=== PATIENT | female | born 1950 | race Caucasian/White ===

== ENCOUNTER 2016-12-03 14:29 | Emergency (ER) | payer OTHER ==
[~2016-12-03] VITALS: Ht 160 cm; Wt 72.6 kg
[2016-12-03 16:09] VITALS: BP 135/96
== END 2016-12-03 17:16 | disposition home or self-care (01) ==
LOC: ER 14:29
DX: S61.412A Laceration without foreign body of left hand, initial encounter (principal); Z88.0 Allergy status to penicillin; W26.0XXA Contact with knife, initial encounter; Y93.89 Activity, other specified; Y92.89 Other specified places as the place of occurrence of the external cause; Y99.8 Other external cause status

== ENCOUNTER 2021-03-16 12:36 | Inpatient (IN) | payer OTHER ==
[~2021-03-16] VITALS: Ht 160 cm; Wt 70.8 kg
--- NOTE | ~2021-03-16 | O ---
[facility] [place] [address] OPERATIVE REPORT Name: CHERYL SMITH Room #: 170-5 ADM IN M.R.#: [id number] Admission: 03/16/21 Attend Phys: Neville Regan, Discharge: Date of : 46 Report #: [id number] THIS REPORT FOR: cc: FAM - No family physician/PCP FAM - No family physician/PCP Neville Regan MD ~ DATE OF SERVICE: 03/16/2021 PREOPERATIVE DIAGNOSIS: Acute perforated appendicitis. POSTOPERATIVE DIAGNOSIS: Acute perforated appendicitis. OPERATION: Laparoscopic appendectomy. SURGEON: Neville Regan MD ANESTHESIA: General. ESTIMATED BLOOD LOSS: Minimal. SPECIMENS: Appendix. DESCRIPTION OF PROCEDURE: After informed consent was obtained, the patient was brought to the operating room and placed supine. SCDs were placed and working, preoperative antibiotics were administered, general anesthesia was induced. The abdomen was prepped and draped in the usual sterile fashion. A 10 mm incision was made below the umbilicus. Fascia was incised and a trocar was placed. Pneumoperitoneum was established. Right upper quadrant and left lower quadrant 5 mm trocars were placed. The appendix was grasped and retracted anteriorly. It was perforated about the mid appendix. Pus was suctioned out. The base was fairly clean and viable. The mesoappendix was ligated using the LigaSure device. There was excellent hemostasis. Base of the appendix was then stapled off with a CAN blue load stapler. Appendix was placed into an Endopouch and removed. The area was then irrigated with normal saline. Fascia was then closed with a [id number] 0 Vicryl. Skin was closed with 4-0 Monocryl. Incisions were dressed with Steri-Strips. COMPLICATIONS: None. DISPOSITION: The patient was taken to recovery in satisfactory condition. By: 1822 27 Neville Regan MD /nt
[2021-03-16 13:28] VITALS: BP 104/58
[2021-03-16 14:05] LABS: ABSOLUTE NEUTROPHILS 15.5 thou/uL (1.4-8.2); BASOPHILS 0.2 % (0.0-2.0); EOSINOPHILS 0.2 % (0.0-3.0); HEMATOCRIT 38.1 % (37.0-47.0); HEMOGLOBIN 12.8 gm/dL (12.0-15.0); LYMPHOCYTES 6.1 % (24.0-44.0); MCH 28.8 pg (26.0-34.0); MCHC 33.6 g/dL (28.0-37.0); MCV 85.7 fL (80.0-100.0); MONOCYTES 4.6 % (1.0-8.0); PLATELET COUNT 197 thou/uL (150-400); POLYS 88.9 % (36.0-66.0); RBC 4.44 mil/uL (4.20-5.00); RDW 13.6 % (10.5-14.5); WBC 17.5 thou/uL (4.0-11.0)
[2021-03-16 14:25] LABS: ALBUMIN 3.4 g/dL (3.4-5.0); CALCIUM 8.9 mg/dL (8.5-10.1); POTASSIUM 3.6 mmol/L (3.5-5.1); TOTAL BILIRUBIN 0.9 mg/dL (0.2-1.0)
[2021-03-16 20:30] VITALS: BP 115/66
[2021-03-16 20:35] LABS: URINE BILIRUBIN NEGATIVE (Negative); URINE BLOOD 2+ (Negative); URINE CLARITY CLEAR; URINE COLOR YELLOW; URINE GLUCOSE-RANDOM* NEGATIVE (Negative); URINE KETONES TRACE (Negative); URINE LEUKOCYTES-REFLEX NEGATIVE (Negative); URINE NITRITE-REFLEX NEGATIVE (Negative); URINE PROTEIN (DIPSTICK) NEGATIVE (Negative); URINE UROBILINOGEN 0.2 E.U./dl (0.2-1.0)
[2021-03-16 20:47] LABS: BACTERIA-REFLEX 1-9 Few /HPF (None Seen); CASTS None Seen /LPF (None Seen); CRYSTALS None Seen /LPF (None Seen); SQUAMOUS 0-3 Few /LPF (0-3); URINE RBC 1-2 Rare /HPF (NONE SEEN); URINE WBC-REFLEX 0-5 Rare /HPF (0-5)
[2021-03-16 21:00] VITALS: BP 105/69
[2021-03-16 21:30] VITALS: BP 115/72
[2021-03-16 22:45] VITALS: BP 116/72
--- NOTE | 2021-03-17 01:39 | NUR ---
ADMISSION ASSESSMENT COMPLETED. S/P LAP APPY. LAP SITES X 3 WITH DERMABAND LOOK OKAY. PT DENIES PAIN SO FAR. BEEN ABLE TO WALK TO THE BATHROOM. SBA.TACHYCARDIC, DENIES ANY CHEST PAIN OR TIGHTNESS.TOLERATING INTAKE-SHE TOOK SOME ICE CREAM AND ICE CHIPS OKAY.SCDS IN PLACE. WILL CONTINUE WITH POC TILL EOS.
[2021-03-17 02:35] VITALS: BP 101/58
[2021-03-17 03:40] VITALS: BP 107/67
--- NOTE | 2021-03-17 04:36 | NUR ---
PT BEEN UP TO THE BATHROOM, AGREEABLE TO USING BSC. PT WANTS TO BE IN THE BATHROOM WITH DOOR CLOSED, I KEEP CHECKING ON PATIENT BECAUSE SHE IS A FALL RISK AND SHE SAYS SHE FEELS PRESSURED THAT I AM CHECKING ON HER.SHE IS POST OP, MILDLY UNSTEADY AND SO FAR A FALL RISK.SHE IS TEARFUL AND UPSET.
[2021-03-17 06:57] LABS: HEMATOCRIT 35.6 % (37.0-47.0); HEMOGLOBIN 11.7 gm/dL (12.0-15.0); MCH 28.4 pg (26.0-34.0); MCV 86.2 fL (80.0-100.0); RBC 4.13 mil/uL (4.20-5.00); RDW 13.7 % (10.5-14.5); WBC 13.3 thou/uL (4.0-11.0)
[2021-03-17 07:13] LABS: CALCIUM 8.5 mg/dL (8.5-10.1); CREATININE 0.9 mg/dL (0.6-1.0); POTASSIUM 3.9 mmol/L (3.5-5.1)
[2021-03-17 07:26] VITALS: BP 104/67
--- NOTE | 2021-03-17 10:06 | NUR ---
ASSUMED PT CARE THIS AM. PT IS ALERT & ORIENTED X4. PT HAS IV SITE ON RFA RUNNING ND@100ML/HR. PT HAD SURGERY YESTERDAY. PT HAS 3 LAP SITES CLEAN AND INTACT. PT IS ON ROOM AIR. PT TOLERATED DIET AND MEDICATION WELL THIS AM. NO C/O OF NAUSEA AND VOMITING. PT ON THE BED WITH SCD ON, BED ON THE LOWEST POSITION, SIDE RAILS UP, CALL LIGHT WITHIN REACH. WILL CONTINUE TO MONITOR PT. FOLLOW POC.
[2021-03-17 14:57] VITALS: BP 103/62
[2021-03-17 19:03] VITALS: BP 106/67
--- NOTE | 2021-03-18 03:10 | NUR ---
ASSESSED AT START OF SHIFT. PT A&OX4. DENIES PAIN N/V. UP AD GORDON. IV INTACT AND FLUIDS INFUSING. EMANUEL DIET WELL. EVENING MEDS GIVAN AND PT EMANUEL IT. IV ABX INTACT AND INFUSING. FALL EDUCATION PROVIDED. WILL CONT WITH POC TILL EOS.
[2021-03-18 04:15] VITALS: BP 107/69
[2021-03-18 07:29] VITALS: BP 112/69
--- NOTE | 2021-03-18 07:33 | EKG ---
[address] [place] [address] ELECTROCARDIOGRAM REPORT Name: CHERYL SMITH Room #: 434-P 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: ANGELICA : 1950 Requested By: Tiana Szymanski Order Number: [id number] MD: Marc Wolf Measurements Intervals [place] Rate: 126 P: 50 MI: 153 QRS: -1 QRSD: 78 T: -7 QT: 309 QTc: 448 Interpretive Statements Sinus tachycardia Borderline repolarization abnormality Baseline wander in lead(s) V5 No previous ECG available for comparison Electronically Signed On 03-18-2021 7:33:02 CDT by Marc Wolf [email or web address] <ELECTRONICALLY SIGNED> By: Marc Wolf MD, [facility] 03/18/21 0733 1814 1814 Marc Wolf MD, FACC /EPI
--- NOTE | 2021-03-18 09:17 | NUR ---
ASSESSMENT: CM REVIEWED CHART AND SPOKE WITH PATIENT. PT IS S/P LAP APPE. PT IS ALERT AND ORIENTED X4. PT REPORTS SHE LIVES IN A HOUSE WITH HER SPOUSE. PT REPORTS HAVING NO STEPS TO ENTER OR ONCE INSIDE. PT REPORTS THAT SHE IS FULLY INDEPENDENT WITH ADLS AND AMBULATION. PT REPORTS THAT SHE HAS A GRAB BAR AND SHOWER CHAIR IN THE SHOWER IF NEEDED. PT REPORTS NO PAST HX OF HH OR SNF. PT REPORTS SHE IS STILL VERY INDEPENDENT. CM DISCUSSED ROLE. PT REPORTS SHE DOES NOT HAVE A PCP. CM PROVIDED HER WITH A LIST OF PRIMARY CARE PHYSICIANS HERE AT [facility]. PT REPORTS SHE DOES NOT ANTICIPATE HAVING ANY FURTHER NEEDS FROM CM . CM WILL CONTINUE TO FOLLOW.
[2021-03-18] MEDS ORDERED: MIRALAX119 GM PO (15:08)
[2021-03-18] MEDS ORDERED: HYDROCODON-ACE1 EAC7 PO (15:08)
[2021-03-18] MEDS ORDERED: FLAGYL500 M1 PO (15:09)
[2021-03-18] MEDS ORDERED: LEVOFLOXACIN500 MG PO (15:09)
[2021-03-18 16:11] VITALS: BP 123/73
[2021-03-18 16:20] VITALS: BP 123/73
--- NOTE | 2021-03-20 11:07 | PATH ---
[facility] [address] [place] [address] PATHOLOGY RPT PROCEDURE Name: CHERYL SMITH Room #: 434-P [facility] IN M.R.#: [id number] Admission: 03/16/21 Date of : 46 Discharge: 03/18/21 Report #: [id number] Path Case #: [id number] [facility] Accession Number: [id number] . 01 Material submitted: . appendix - APPENDIX . 01 Clinical history: . RUPTURED APPENDIX . 02 Diagnosis: Appendix, appendectomy: - Marked acute appendicitis along with marked acute serositis. - Endometriosis identified at the tip. - Fibrous obliteration of the tip. (IUV/db; 03/19/2021) LBQ 03/19/2021 1339 Local . 02 Electronically signed: . Karen Fish MD, Pathologist NPI- [id number] . 01 Gross description: . Fixative: Formalin Labeled: Appendix Appendix length: 9.0 cm Appendix diameter: Ranges from 0.9-1.5 cm Mesoappendix: 2.2 cm Proximal margin: Stapled Serosa: [place] with multiple transmural defects and a moderate amount of white-velasquez exudate. Cut surface: Sectioning reveals a proximally dilated lumen with a moderate amount of fecal material Luminal diameter: Ranges from 0.1-0.8 cm Perforation: Present Lesions/abnormalities: None identified A1 Proximal margin (inked black) and distal tip, bisected A2 Mid appendix including area of perforation (MRF; 03/18/2021) MFE/MFE 03/18/2021 1446 Local . 02 Pathologist provided ICD-10: K35.20 . 02 CPT . [id number] Specimen Comment: A courtesy copy of this report has been sent to [phone] [place] [phone] PATHOLOGY RPT PROCEDURE Name: CHERYL SMITH Room #: 434-P [facility] IN .R.#: [id number] Admission: 03/16/21 Date of : 46 Discharge: 03/18/21 Report #: [id number] Path Case #: [id number] Specimen Comment: Report sent to Specimen Comment: A duplicate report has been generated due to demographic updates. Performed at: 01 [facility] Madalyn Irving [address] [facility] [address], [place], [place] [id number] MD Braulio Soriano MD Phone: [phone] Performed at: [address] [id number] MD Karen Fish MD Phone: [phone]
== END 2021-03-18 18:12 | disposition home or self-care (01) | DRG 853 ==
LOC: ER 12:36 → 4S 17:24 → EROBS 17:24 → 4S 20:34
PROVIDERS: Internal Medicine; Nurse Practitioner Family; ADMIT Surgery; ATTEND Surgery
PROC: 0DTJ4ZZ Resection of Appendix, Percutaneous Endoscopic Approach (ICD-10-PCS; principal; 2021-03-16)
DX: A41.9 Sepsis, unspecified organism (principal); K35.32 Acute appendicitis with perforation, localized peritonitis, and gangrene, without abscess; Z20.822 Contact with and (suspected) exposure to COVID-19; M19.90 Unspecified osteoarthritis, unspecified site; Z88.0 Allergy status to penicillin; Z87.891 Personal history of nicotine dependence
CPT/HCPCS: 10195; 50101; 50411; 50555; 50739; 50740; 51489; 52265; 52266; 53307; 53312; 53314; 56462; 56525; 56526; 58574; 58586; 58867; 62110; 62900; 70005